=== PATIENT | male | born 1965 | race African-American/Black ===

== ENCOUNTER 2018-06-08 04:53 | Emergency (ER) | payer OTHER ==
[~2018-06-08] VITALS: Ht 104.1 cm; Wt 117.9 kg
--- NOTE | ~2018-06-08 | EKG ---
[place] [address] [facility] [employer] [place] [address] ELECTROCARDIOGRAM REPORT Name: KARLOS MATHIS Room #: [facility] [id number] Admission: 06/08/18 Attend Phys: Discharge: 06/08/18 Date of : 61 Report #: [id number] THIS REPORT FOR: //name// [facility] ED Test Date: 2018-06-08 Test Time: 05:16:26 Pat Name: KARLOS MATHIS Department: Room: Gender: M [employer]: CHITRA Mari : 1965 Requested By: Dontrell Zhu Order Number: [id number] MD: Ari Bhagat Measurements Intervals [place] Rate: 98 P: 46 MD: 176 QRS: 33 QRSD: 94 T: 15 QT: 356 QTc: 455 Interpretive Statements Sinus rhythm Minimal, diffuse ST segment elevation No previous ECG available for comparison Electronically Signed On 06-08-2018 8:24:12 CDT by Ari Bhagat [email or web address] <ELECTRONICALLY SIGNED> By: Ari Bhagat MD, [facility] 06/08/18 0824 0516 0516 Ari Bhagat MD, FACC /EPI
[2018-06-08] MEDS ORDERED: TYLENOL325 MG PO (05:23)
[2018-06-08] MEDS ORDERED: COLACE100 MG PO (05:23)
[2018-06-08] MEDS ORDERED: MINTOX PLUS TA1 EACH PO (05:24)
[2018-06-08] MEDS ORDERED: MILK OF MA2400 MG/10 PO (05:24)
[2018-06-08] MEDS ORDERED: SENNA PLUS TAB1 EACH PO (05:25)
[2018-06-08] MEDS ORDERED: GLUTOSE GEL 1515 G1 PO (05:25)
[2018-06-08 05:26] LABS: ABSOLUTE NEUTROPHILS 13.2 thou/uL (1.4-8.2); BASOPHILS 0.6 % (0.0-2.0); EOSINOPHILS 0.8 % (0.0-3.0); HEMATOCRIT 43.6 % (42.0-52.0); HEMOGLOBIN 14.2 gm/dL (14.0-18.0); LYMPHOCYTES 15.4 % (24.0-44.0); MCHC 32.5 g/dL (28.0-37.0); MONOCYTES 6.6 % (1.0-8.0); PLATELET COUNT 208 thou/uL (150-400); POLYS 76.6 % (36.0-66.0); RBC 5.45 mil/uL (4.50-6.00); RDW 18.8 % (10.5-14.5); WBC 17.3 thou/uL (4.0-11.0)
[2018-06-08] MEDS ORDERED: GLUCAGON EMERGEN1 MG SUBQ (05:26)
[2018-06-08] MEDS ORDERED: WAT IV (05:27)
[2018-06-08] MEDS ORDERED: AMITRIPTYLINE H10 M3 PO (05:27)
[2018-06-08] MEDS ORDERED: DEXTROSE 5% IV (05:27)
[2018-06-08] MEDS ORDERED: AMBIEN 5 MG TABL5 M1 PO (05:27)
[2018-06-08] MEDS ORDERED: OXYCONTIN40 MG PO (05:28)
[2018-06-08] MEDS ORDERED: LOPRESSOR100 M1 PO (05:28)
[2018-06-08] MEDS ORDERED: LISINOPRIL2.5 M1 PO (05:28)
[2018-06-08] MEDS ORDERED: KEPPRA 500 MG500 M1 PO (05:29)
[2018-06-08] MEDS ORDERED: NOVOLOG100 UNIT/1 SUBQ (05:29)
[2018-06-08] MEDS ORDERED: LEVEMIR100 UNIT/1 SUBQ (05:30)
[2018-06-08] MEDS ORDERED: LYRICA 50 MG50 MG PO (05:30)
[2018-06-08] MEDS ORDERED: POTASSIUM20 PO (05:31)
[2018-06-08] MEDS ORDERED: LASIX 80 MG TAB80 MG PO (05:31)
[2018-06-08] MEDS ORDERED: LASIX 40 MG TAB40 M2 PO (05:32)
[2018-06-08 05:33] LABS: URINE BILIRUBIN NEGATIVE (Negative); URINE BLOOD NEGATIVE (Negative); URINE CLARITY CLEAR; URINE COLOR YELLOW; URINE GLUCOSE-RANDOM* NEGATIVE (Negative); URINE KETONES NEGATIVE (Negative); URINE LEUKOCYTES-REFLEX NEGATIVE (Negative); URINE NITRITE-REFLEX NEGATIVE (Negative); URINE PROTEIN (DIPSTICK) 1+ (Negative); URINE SPECIFIC GRAVITY >= 1.030 (1.005-1.035); URINE UROBILINOGEN 0.2 E.U./dl (0.2-1.0)
[2018-06-08] MEDS ORDERED: LEVEMIR SUBQ (05:33)
[2018-06-08 05:34] LABS: ANION GAP 9 mmol/L (7-16); BUN 29 mg/dL (7-18); CALCIUM 8.9 mg/dL (8.5-10.1); CHLORIDE 99 mmol/L (98-107); CO2 24 mmol/L (21-32); CREATININE 1.9 mg/dL (0.7-1.3); GLUCOSE 224 mg/dL (74-106); POTASSIUM 4.4 mmol/L (3.5-5.1); SODIUM 132 mmol/L (136-145)
[2018-06-08 05:41] LABS: AMP/METHAMP Negative (Negative); BARBITURATES Negative (Negative); BENZODIAZEPINES Negative (Negative); COCAINE Negative (Negative); METHADONE Negative (Negative); OPIATES POSITIVE (Negative); PCP Negative (Negative)
[2018-06-08 05:42] LABS: ALBUMIN 3.2 g/dL (3.4-5.0); SGOT 45 U/L (15-37); SGPT 46 U/L (30-65); TOTAL BILIRUBIN 0.3 mg/dL (<0.1-1.0); TOTAL PROTEIN 8.1 g/dL (6.4-8.2); TROPONIN-I <0.06 ng/mL (<0.06)
[2018-06-08 05:49] LABS: MUCUS 0-3 Light strn/LPF (None Seen); SQUAMOUS None Seen /LPF (0-3); URINE RBC None Seen /HPF (0-2); URINE WBC-REFLEX None Seen /HPF (0-5)
[2018-06-08 05:50] LABS: BACTERIA-REFLEX None Seen /HPF (None Seen); CRYSTALS None Seen /LPF (None Seen); HYALINE CASTS 4-10 Moderate /LPF (None Seen)
[2018-06-08 07:13] VITALS: BP 111/79
== END 2018-06-08 07:14 | disposition home or self-care (01) ==
LOC: ER 04:53
PROVIDERS: Emergency Medicine
DX: T40.2X1A Poisoning by other opioids, accidental (unintentional), initial encounter (principal); Y92.89 Other specified places as the place of occurrence of the external cause; R41.82 Altered mental status, unspecified; N18.9 Chronic kidney disease, unspecified; G89.4 Chronic pain syndrome; J44.9 Chronic obstructive pulmonary disease, unspecified; I25.10 Atherosclerotic heart disease of native coronary artery without angina pectoris; R73.9 Hyperglycemia, unspecified; D72.829 Elevated white blood cell count, unspecified; F12.90 Cannabis use, unspecified, uncomplicated; Z88.8 Allergy status to other drugs, medicaments and biological substances